=== PATIENT | male | born 1950 | race Caucasian/White ===

== ENCOUNTER 2018-03-12 09:27 | Day surgery (SDC) | payer BC ==
[~2018-03-12] VITALS: Ht 182.9 cm; Wt 90.7 kg
--- NOTE | ~2018-03-12 | OP ---
PATIENT NAME: ZAIDA DIAZ MEDICAL RECORD: [id number] :48 LOCATION:[facility] ADMISSION DATE: SURGEON: GUCCI SANCHEZ MD DATE OF OPERATION: 03/12/2018 PROCEDURE: Colonoscopy with polypectomy. REFERRING PHYSICIAN: Tammy Juan MD INDICATIONS: Mr. Diaz is a delightful 67-year-old gentleman with a history of obstructive sleep apnea, status post tracheostomy and chronic constipation. He presents for outpatient surveillance colonoscopy. PREMEDICATIONS: Total IV anesthesia (propofol 150 mg; obstructive sleep apnea). INSTRUMENT: Olympus video colonoscope pediatric. PROCEDURE AND FINDINGS: After receiving informed consent, Mr. Diaz was placed in left lateral decubitus position, sedated as per anesthesia. After achieving adequate level of sedation, digital rectal exam was performed, which showed no external hemorrhoid tags, fissures or fistulas, normal sphincter tone, no palpable rectal masses. Colonoscope was introduced per rectally and advanced to the cecum without difficulty. Cecum, IC valve, and appendiceal orifice were identified and appeared normal. As the colonoscope was withdrawn, careful inspection was made of the sanchez of the colon. Overall, mucosa had normal vascular and fold pattern. In the mid ascending colon was a 0.3 cm sessile polyp, removed with hot biopsy forcep technique. No other polyps were seen in the colon. Retroflexion in the rectum showed no significant internal hemorrhoids. A fair prep was present. Withdrawal time was 8 minutes. Mr. Diaz tolerated the procedure well, no immediate complications. ASSESSMENT: 1. Mid ascending colon polyp, status post polypectomy. 2. Otherwise, normal colonoscopy. RECOMMENDATIONS: 1. Follow up histopathology. 2. Avoid aspirin, nonsteroidal anti-inflammatory drugs and REDMAN-2 inhibitors for 14 days post polypectomy. 3. High fiber diet. 4. Surveillance colonoscopy in 3 years pending nature of polyp histopathology. TRANSINT:[id number] Voice Confirmation ID: [id number] DOCUMENT ID: [id number] GUCCI SANCHEZ MD CC: TAMMY JUAN [id number] DICTATION DATE: 03/12/18 1325 OFFSET PRESS OPERATOR: 03/12/18 [address] [place] [id number]
[2018-03-12 09:49] LABS: MCH 33.1 pg (26.0-34.0); MCHC 35.6 g/dL (31.0-37.0); MEAN PLATELET VOLUME 9.9 fL (7.4-10.4); RBC 4.84 10x6/uL (4.20-6.10); RDW 12.9 % (11.5-14.5); WBC 6.3 10x3/uL (4.8-10.8)
[2018-03-12] MEDS ORDERED: ATIVAN1 MG PO (10:55)
[2018-03-12] MEDS ORDERED: BUPROPION XL300 MG PO (10:55)
[2018-03-12] MEDS ORDERED: AMBIEN10 MG PO (10:56)
== END 2018-03-12 14:24 | disposition home or self-care (01) ==
LOC: D.OPS 09:27
PROVIDERS: Anesthesiology
DX: K63.5 Polyp of colon (principal); Z12.11 Encounter for screening for malignant neoplasm of colon